=== PATIENT | male | born 1980 | race Caucasian/White ===

== ENCOUNTER 2024-09-22 10:53 | Outpatient (CLI) | payer SELFPAY | END 2024-09-22 23:59 | disposition home or self-care (01) | LOC: MRI 10:53 | PROVIDERS: ATTEND Physician Assistant Surgical | DX: M51.17 Intervertebral disc disorders with radiculopathy, lumbosacral region (principal); M48.07 Spinal stenosis, lumbosacral region | CPT/HCPCS: 72148 ==